=== PATIENT | female | born 1985 | race Two or more races ===

== ENCOUNTER 2021-02-17 14:35 | Emergency (ER) | payer OTHER ==
[~2021-02-17] VITALS: Ht 162.6 cm; Wt 63.5 kg
[2021-02-17 15:15] VITALS: BP 106/63
== END 2021-02-17 17:02 | disposition home or self-care (01) ==
LOC: ER 14:35
DX: R51.9 Headache, unspecified (principal); W18.39XA Other fall on same level, initial encounter; Y93.89 Activity, other specified; Y92.89 Other specified places as the place of occurrence of the external cause; Y99.8 Other external cause status
CPT/HCPCS: 70450